=== PATIENT | female | born 1945 | race Asian ===

== ENCOUNTER 2022-09-17 15:46 | Emergency (ER) | payer OTHER ==
[~2022-09-17] VITALS: Ht 167.6 cm; Wt 68.0 kg
--- NOTE | 2022-09-17 15:50 | NUR ---
PT BIB DAUGHTER AND AMBULATED TO BED 4. PT IS A&Ox4 AND ABLE TO MAKE NEEDS KNOWN. PT STATES SHE WAS WALKING OUTSIDE AND TRIPPED ON A STEP, FELL AND HIT FACE ON CEMENT. PT DENIES LOSSING CONCIOUSNESS. LACERATION NOTED ON LEFT UPPER EYEBROW, ABRASION NOTED ON LEFT CHEEK. PT RATES PAIN 3/10. PT DENIES BEING ON BLOOD THINNERS. SAFETY MEASURES IN PLACE.
--- NOTE | 2022-09-17 15:55 | NUR ---
ER at bedside examining patient.
[2022-09-17 16:57] VITALS: BP_SYST 169
[2022-09-17] MEDS ORDERED: DIPHTH,PERTUSS(ACELL),TET VAC 0.5 ML VIAL (Tdap) I.M. ONE (17:00)
[2022-09-17] MEDS ORDERED: LIDOCAINE MPF 2% 5mL VIAL INJ ONE (17:00)
--- NOTE | 2022-09-17 17:00 | NUR ---
PT LEFT TO CT IN [facility].
--- NOTE | 2022-09-17 17:01 | NUR ---
Patient to ER bed 4 to gown for evaluation. Side rails up. Report given to NELY .
[2022-09-17] MEDS ORDERED: LIDOCAINE 2%, 20 ML MDV ONE (17:07)
--- NOTE | 2022-09-17 17:24 | NUR ---
TDAP IM GIVEN TO LEFT DELTOID. SITE WNL. COVERED WITH CDI BANDAID. PT EDUCATED ON THE S/S OF TDAP REACTION AND INDICATIONS FOR ADMINISTRATION. PT VERBALIZED UNDERSTANDING.
--- NOTE | 2022-09-17 17:43 | NUR ---
DR. SHAFER AT BEDSIDE TO PLACE SUTURES TO LEFT FOREHEAD.
[2022-09-17] MEDS ORDERED: BACITRACIN 1 GM OINT TP ONE (18:00)
[2022-09-17] MEDS ORDERED: BACI15OI13 TP (18:08)
[2022-09-17] MEDS ORDERED: ACET-2634 PO (18:08)
[2022-09-17 18:30] VITALS: BP_SYST 168
--- NOTE | 2022-09-17 18:30 | NUR ---
Patient given written and verbal discharge instructions and verbalizes understanding. ER DR WEBB discussed with patient the results and treatment provided. Patient in stable condition. ID arm band removed. Rx of TYLENOL AND BACITRACIN ZINC given. Patient educated on pain management and to follow up with PMD. Pain Scale 0/10. Opportunity for questions provided and answered. Medication side effect fact sheet provided.
== END 2022-09-17 18:30 | disposition home or self-care (01) ==
LOC: SED 15:46
DX: S01.112A Laceration without foreign body of left eyelid and periocular area, initial encounter (principal); I10 Essential (primary) hypertension; Z79.899 Other long term (current) drug therapy; W10.8XXA Fall (on) (from) other stairs and steps, initial encounter; Y93.89 Activity, other specified; Y92.89 Other specified places as the place of occurrence of the external cause; Y99.8 Other external cause status
CPT/HCPCS: 99284; 70450; 72125; 76376; 90715; 90471; 12011; J2001 ×2

== ENCOUNTER 2022-09-24 08:16 | Emergency (ER) | payer OTHER ==
[~2022-09-24] VITALS: Ht 162.6 cm; Wt 68.0 kg
[~2022-09-24 08:16] MED LIST: ACET-2634 PO; BACI15OI13 TP
--- NOTE | 2022-09-24 08:30 | NUR ---
PT BIB DAUGHTER AWAKE AND ALERT AOX4, NO SOB OR DISTRESS. PT HERE FOR F/U TO REMOVE STITCHES TO HER FOREGEAD. PT DENIES PAIN.
[2022-09-24 08:32] VITALS: BP_SYST 134
--- NOTE | 2022-09-24 08:32 | NUR ---
PIERO TILLMAN AT BEDS
--- NOTE | 2022-09-24 08:45 | NUR ---
Patient given written and verbal discharge instructions and verbalizes understanding. ER MD DR TILLMAN discussed with patient the results and treatment provided. Patient in stable condition. ID arm band removed. Patient educated on pain management and to follow up with PMD. Pain Scale 0/10. Opportunity for questions provided and answered. Medication side effect fact sheet provided.
[2022-09-24 08:58] VITALS: BP_SYST 135
== END 2022-09-24 08:58 | disposition home or self-care (01) ==
LOC: SED 08:16
DX: Z48.02 Encounter for removal of sutures (principal); I10 Essential (primary) hypertension; Z79.899 Other long term (current) drug therapy
CPT/HCPCS: 99281